=== PATIENT | male | born 1985 | race African-American/Black ===

== ENCOUNTER 2023-02-03 16:24 | Emergency (ER) | payer SELFPAY ==
[~2023-02-03] VITALS: Ht 188 cm; Wt 93.0 kg
[2023-02-03 16:37] VITALS: O2SAT 99
[2023-02-03] MEDS ORDERED: DIPHENHYDRAMINE25 MG PO ×2 (16:43→17:49)
[2023-02-03] MEDS ORDERED: TYLENOL325 MG PO ×2 (16:43→17:49)
[2023-02-03] MEDS ORDERED: AMOX TR-K CLV1 EAC2 PO (16:43)
[2023-02-03] MEDS ORDERED: IBUPROFEN200 MG PO ×2 (16:43→17:49)
[2023-02-03] MEDS ORDERED: CLEOCIN HCL300 MG PO ×2 (16:51→17:49)
== END 2023-02-03 16:45 | disposition home or self-care (01) ==
LOC: FSED 16:27
DX: K02.9 Dental caries, unspecified (principal); K04.7 Periapical abscess without sinus; K04.99 Other diseases of pulp and periapical tissues
CPT/HCPCS: 99282